=== PATIENT | male | born 1935 | race African-American/Black ===

== ENCOUNTER 2017-12-01 10:33 | Emergency (ER) | payer OTHER ==
[2017-12-01 13:09] VITALS: BP 142/82
== END 2017-12-01 13:23 | disposition home or self-care (01) ==
LOC: EDBD 10:33 → ER 10:35 → EDBD 10:35 → ER 13:23
DX: N40.0 Benign prostatic hyperplasia without lower urinary tract symptoms (principal); I10 Essential (primary) hypertension; Z46.6 Encounter for fitting and adjustment of urinary device
CPT/HCPCS: 51702; 81002